=== PATIENT | male | born 1995 | race Caucasian/White ===

== ENCOUNTER 2017-12-26 13:16 | Emergency (ER) | payer OTHER, BC | END 2017-12-26 14:43 | disposition home or self-care (01) | LOC: ED 13:16 | DX: S61.412A Laceration without foreign body of left hand, initial encounter (principal); W01.118A Fall on same level from slipping, tripping and stumbling with subsequent striking against other sharp object, initial encounter; Y93.89 Activity, other specified; Y92.69 Other specified industrial and construction area as the place of occurrence of the external cause; Y99.9 Unspecified external cause status ==